=== PATIENT | female | born 1950 ===

== ENCOUNTER 2020-05-03 09:43 | Observation (INO) ==
[2020-05-03] MEDS ORDERED: NS 0.9% 1000 ml BAG 1,000 ML IV ONE (09:49)
[2020-05-03] MEDS ORDERED: Iodixanol (CONTRAST) 320 MG/ML 100 ML SDV IV ONE (10:09)
[2020-05-03 10:32] LABS: ABS Eosinophils 0.2 10^3/ul (0-0.6); ABS Lymphocytes 1.8 10^3/ul (1.0-4.8); ABS Monocytes 0.4 10^3/ul (0-0.8); ABS Neutrophils 2.6 10^3/ul (1.5-7.7); Eosinophil % 3.6 %; Hematocrit 44 % (35-47); Lymphocyte % 35.7 %; Mean Corpuscular HGB Conc 34 g/dL (31-36); Mean Corpuscular Hemoglobin 31 pg (27-31); Mean Corpuscular Volume 90 fL (80-97); Mean Platelet Volume 8.1 fL (7.4-10.4); Platelet Count 267 10^3/uL (150-450); Red Blood Count 4.84 10^6 /uL (3.70-4.87); Red Cell Distribution Width 13 % (10-15)
[2020-05-03 10:41] LABS: Activated Partial Thrombo Time 33.1 seconds (26.0-38.0); INR 0.95 (0.82-1.09)
[2020-05-03 10:53] LABS: ALT 13 U/L (7-52); Albumin 4.5 g/dL (3.2-5.2); Albumin/Globulin Ratio 1.6 (1-3); Alkaline Phosphatase 59 U/L (34-104); Anion Gap 7 mmol/L (2-11); BUN/Creatinine Ratio 17.8 (8-20); Blood Urea Nitrogen 13 mg/dL (6-24); CO2 Carbon Dioxide 26 mmol/L (22-32); Calcium 9.3 mg/dL (8.6-10.3); Chloride 106 mmol/L (101-111); Cholesterol 249 mg/dL; EGFR African American 95.9 (>60); EGFR Non-African American 79.3 (>60); Globulin 2.8 g/dL (2-4); Glucose 84 mg/dL (70-100); HDL Cholesterol 64.6 mg/dL; LDL Cholesterol 169 mg/dL; Sodium 139 mmol/L (135-145); Total Protein 7.3 g/dL (6.4-8.9); Triglycerides 78 mg/dL
[2020-05-03 10:55] LABS: Troponin I 0.03 ng/mL (<0.03)
[2020-05-03 11:37] LABS: TSH Ultra Thyroid Stim Horm 3.45 mcIU/mL (0.34-5.60)
[2020-05-03 11:48] LABS: Vitamin B12 235 pg/mL (180-914)
[2020-05-03 15:20] LABS: Potassium Redraw 3.6 mmol/L (3.5-5.0)
[2020-05-03 15:25] LABS: Troponin I 1.12 ng/mL (<0.03)
[2020-05-03] MEDS ORDERED: Perflutren Lipid Microsphere 3 ML VIAL ONE (16:37)
[2020-05-03] MEDS ORDERED: Midazolam 5 mg/5 ml VIAL 1 mg/ml 5 ml VIAL (5 mg) ONE (17:14)
[2020-05-03] MEDS ORDERED: VERAPAMIL 2.5 MG/ML 2 ML VIAL ** 5 mg/2 ml ONE (17:14)
[2020-05-03] MEDS ORDERED: Heparin 2 UNITS/ML 1000 mls 2,000 ML IV ONE (17:14)
[2020-05-03] MEDS ORDERED: Heparin 1,000 UNIT/ML 10 ml (10,000 UNITS) CATHLAB/DIALYSIS ONE (17:14)
[2020-05-03] MEDS ORDERED: NS 0.9% 1000 ml BAG 1,000 ML IV SCH ×2 (17:15→18:30)
[2020-05-03] MEDS ORDERED: Lidocaine 1% VIAL 10 MG/ML VIAL ONE (17:15)
[2020-05-03] MEDS ORDERED: Iohexol 350 (CONTRAST) 200 ML MDV IV ONE ×2 (17:15→18:06)
[2020-05-03] MEDS ORDERED: nitroGLYCERIN DRIP 0 MCG/0 ML BTL ONE (17:15)
[2020-05-03] MEDS ORDERED: diPHENhydraMINE IV 50 MG/ML 1 ml VIAL (BENADRYL) ONE (17:20)
[2020-05-03 18:03] LABS: Prolactin 10.7 ng/mL (1.0-25.0)
[2020-05-03 22:10] LABS: CKMB ng/mL 6.2 ng/mL (0.6-6.3); Troponin I 0.86 ng/mL (<0.03)
[2020-05-03 22:36] LABS: Prolactin 4.5 ng/mL (1.0-25.0)
[2020-05-04 02:05] LABS: Troponin I 0.53 ng/mL (<0.03)
[2020-05-04 08:22] LABS: Urine Appearance Cloudy; Urine Bilirubin Negative (Negative); Urine Blood Negative (Negative); Urine Color Yellow; Urine Glucose Negative (Negative); Urine Ketones 1+ (Negative); Urine Nitrite Negative (Negative); Urine Protein Negative (Negative); Urine Specific Gravity 1.023 (1.010-1.030); Urine Urobilinogen Negative (Negative)
[2020-05-04 08:48] LABS: Urine Bacteria Absent (Absent); Urine Red Blood Cell Trace(0-2/hpf) (Absent); Urine Squamous Epithelial Cell Present (Absent); Urine White Blood Cell 3+(>20/hpf) (Absent)
[2020-05-04 09:41] VITALS: BP 111/50
== END 2020-05-04 11:30 | disposition home or self-care (01) ==
LOC: ED 09:43 → MEDTELE 09:43
PROVIDERS: ADMIT Internal Medicine; ATTEND Internal Medicine